=== PATIENT | female | born 2000 | race Caucasian/White ===

== ENCOUNTER 2018-10-24 10:03 | Emergency (ER) | payer SELFPAY ==
--- NOTE | 2018-10-24 10:34 | UC ---
- HPI Summary HPI Summary: Patient is a 18 y/o female who presents to the ED c/o breast pain. Shes had bilateral breast pain and swelling, left worse than right, for several days. Patient went to a clinic for the pain and was given Doxycycline for her left axillar lymphadenopathy. She denies any redness, discharge, fevers, chills, or N /V. Pain is rated a 6/10 in severity. She had mastitis several years ago, but denies any prior pregnancies. LNMP 2 weeks ago, patient is not on control. Patient denies any FHx of breast CA. - History of Current Complaint Hx Obtained From: Patient Breast Chief Complaint: Pain, Left, Other: - NEGATIVE: drainage, redness Onset/Duration: Started Days Ago - several, Still Present Timing: Constant Breast Pain Aggravating Factors: Nothing Breast Pain Alleviating Factors: Nothing Breast Associated Signs/Symptoms: Other: - lump left axilla Breast Related History: Similar Episode as: - mastitis w/o - Allergy/Home Medications Allergies/Adverse Reactions: Allergies Allergy/AdvReac Type Severity Reaction Status Date / Time lactose Allergy Rash Verified 10/24/18 10:14 Home Medications: Home Medications NK [No Home Medications Reported] 10/24/18 [History Confirmed 10/24/18] PMH/Surg Hx/FS Hx/Imm Hx Endocrine History: Other - NEGATIVE: DM Cardiovascular History: Other - NEGATIVE: HTN - Family History Known Family History: Positive: Other - NEGATIVE: breast CA - Social History Lives: With Family Alcohol Use: None Substance Use Type: None Smoking Status (MU): Never Smoked Tobacco Review of Systems All Other Systems Reviewed And Are Negative: Yes Constitutional: Negative: Fever, Chills Skin: Positive: Other - bilateral breast pain and swelling, left axilla lymphadenopathy, NEGATIVE: redness, discharge Gastrointestinal: Negative: Vomiting, Nausea Physical Exam - Summary Physical Exam Summary: GENERAL: Patient is a well-developed and nourished F who is lying comfortable in the stretcher. Patient is not in any acute respiratory distress. HEAD AND FACE: Normocephalic EYES: PERRLA, EOMI x 2. EARS: Hearing grossly intact. MOUTH: Oropharynx within normal limits. NECK: Supple, trachea is midline, no adenopathy, no JVD, no carotid bruit. CHEST: Symmetric. Moderate-severe tenderness to palpation of bilateral breasts, left worse than right. LUNGS: Clear to auscultation bilaterally. No wheezing or crackles. CVS: Regular rate and rhythm, S1 and S2 present, no murmurs or gallops appreciated. ABDOMEN: Soft, non-tender. Bowel sounds are normal. No abnormal abdominal pulsations. EXTREMITIES: Full ROM in all major joints, no edema, no cyanosis or clubbing. NEURO: Alert and oriented x 3. No acute neurological deficits. Speech is normal and follows commands. SKIN: Dry and warm. No erythema or warmth of breasts. Lymphadenopathy of left axilla. Triage Information Reviewed: Yes Vital Signs: Initial Vital Signs Temp 99.3 F 10/24/18 10:12 Pulse 88 10/24/18 10:12 Resp 18 10/24/18 10:12 BP 127/64 10/24/18 10:12 Pulse Ox 97 10/24/18 10:12 Vital Signs Reviewed: Yes Diagnostics - Radiology No standard instances Radiology Interpretation Completed By: Radiologist Summary of Radiographic Findings: Breast US: There is a lymph node in the left axilla measuring 1.7 x 0.5 x 1.0 cm. In the area of the palpable nodule there appears to be a cutaneous lesion which is hypoechoic with through transmission measuring 1.3 x 0.5 x 0.6 cm may represent an epidermal inclusion cyst. Clinical correlation is suggested. ED physician reviewed radiology report. Breast Pain Course/Dx - Course Course Of Treatment: Patient is a 18 y/o female who presents to the ED c/o bilateral breast pain and swelling, left worse than right. She had mastitis several years ago, but denies any prior pregnancies. A physical exam revealed Moderate-severe tenderness to palpation of bilateral breasts, left worse than right. No erythema or warmth of breasts. Lymphadenopathy of left axilla. A breast US revealed There is a lymph node in the left axilla measuring 1.7 x 0.5 x 1.0 cm. In the area of the palpable nodule there appears to be a cutaneous lesion which is hypoechoic with through transmission measuring 1.3 x 0.5 x 0.6 cm may represent an epidermal inclusion cyst. Clinical correlation is suggested. Bloodwork without abnormalities. Final dx of epidermal inclusion cyst and left axillary lymphadenopathy. Patient is discharged and is to have a repeat US. I discussed results with patient, and she reports feeling better. She is hemodynamically stable and safe for discharge. Strict return precautions given and she will otherwise follow up with her PCP. Patient instructed to comtinue her Doxycycline as prescribed by her PCP - Diagnoses Provider Diagnoses: Epidermal inclusion cyst, Lymphadenopathy, axillary Discharge - Sign-Out/Discharge Documenting (check all that apply): Patient Departure - Discharge Patient Received Moderate/Deep Sedation with Procedure: No - Discharge Plan Condition: Improved Disposition: HOME Patient Education Materials: Lymphadenopathy (ED), Epidermal Inclusion Cysts ( ED) Referrals: [facility] [Outside] (1-3 days) Additional Instructions: Follow up to have a repeat ultrasound. RETURN TO THE EMERGENCY DEPARTMENT FOR CHANGING OR WORSENING SYMPTOMS. - Billing Disposition and Condition Condition: IMPROVED Disposition: Home - Attestation Statements Document Initiated by Delbert: Yes Documenting Scribe: Hortensia Boggs Provider For Whom Delbert is Documenting (Include Credential): Bj Thorpe MD Scribe Attestation: Hortensia Pitts scribed for Bj Thorpe MD on 10/24/18 at 1333. Scribe Documentation Reviewed: Yes Provider Attestation: The documentation as recorded by the Hortensia cross accurately reflects the service I personally performed and the decisions made by , Bj Thorpe MD Status of Scribe Document: Viewed
[2018-10-24 11:07] LABS: ABS Eosinophils 0.1 10^3/ul (0-0.6); ABS Lymphocytes 2.3 10^3/ul (1.0-4.8); ABS Monocytes 0.6 10^3/ul (0-0.8); ABS Neutrophils 2.9 10^3/ul (1.5-7.7); Eosinophil % 2.3 %; Hematocrit 38 % (35-47); Lymphocyte % 39.2 %; Mean Corpuscular HGB Conc 34 g/dL (31-36); Mean Corpuscular Hemoglobin 30 pg (27-31); Mean Corpuscular Volume 86 fL (80-97); Nucleated Red Blood Cells % 0.2; Platelet Count 220 10^3/uL (150-450); Red Blood Count 4.42 10^6 /uL (3.70-4.87); Red Cell Distribution Width 13 % (10.5-15)
[2018-10-24 11:22] LABS: ALT 11 U/L (7-52); AST 16 U/L (13-39); Albumin 4.3 g/dL (3.2-5.2); Albumin/Globulin Ratio 1.7 (1-3); Alkaline Phosphatase 58 U/L (34-104); Anion Gap 5 mmol/L (2-11); Blood Urea Nitrogen 9 mg/dL (6-24); CO2 Carbon Dioxide 26 mmol/L (22-32); CRP High Sensitivity 0.56 mg/L (<2.00); Calcium 9.4 mg/dL (8.6-10.3); Chloride 107 mmol/L (101-111); EGFR African American 107.5 (>60); EGFR Non-African American 88.9 (>60); Globulin 2.6 g/dL (2-4); Glucose 97 mg/dL (70-100); Potassium 3.9 mmol/L (3.5-5.0); Sodium 138 mmol/L (135-145); Total Protein 6.9 g/dL (6.4-8.9)
[2018-10-24 11:27] LABS: HCG Pregnancy < 0.60 mIU/mL
[2018-10-24 12:56] VITALS: BP 104/66
== END 2018-10-24 12:55 | disposition home or self-care (01) ==
LOC: ED 10:03
DX: L72.0 Epidermal cyst (principal); R59.1 Generalized enlarged lymph nodes
CPT/HCPCS: 36415; 80053; 83605; 84702; 85025; 86141; 87040; 99283